=== PATIENT | male | born 1965 | race Caucasian/White ===

== ENCOUNTER 2023-12-22 08:11 | Outpatient (CLI) | payer BC, SELFPAY ==
--- NOTE | ~2023-12-22 | CT_ITS ---
EXAMINATION: CT abdomen pelvis w con DATE: 12/22/2023 08:37 INDICATION: Unspecified abdominal pain TECHNIQUE: Computed tomography (CT) of the abdomen and pelvis was performed with 100 cc Omnipaque 350 intravenous contrast. The dose-length product was 1095.69 mGy-cm. Automated exposure control and ite rative reconstruction technique were employed. COMPARISON: None. FINDINGS: Lung bases unremarkable. Heart size normal. No significant pleural or pericardial effusion. Small fat-containing bilateral inguinal hernias. There is atherosclerosis of the aorta. No lymphaden opathy. No gallstones. Fatty infiltration of the liver. The spleen, pancreas, adrenal glands and kidn eys are unremarkable. Nonobstructive bowel gas pattern. No free air or free fluid. Mild lumbar spondy losis. IMPRESSION: 1. No acute abdominal abnormality. 2: Cholelithiasis. 3: Bilateral fat-containing inguinal hernias. Reviewed, dictated and finalized at location B.
== END 2023-12-22 08:12 ==
LOC: MICIMG 08:13
PROVIDERS: PCP Family Medicine; Visit Provider Family Medicine
DX: K80.20 Calculus of gallbladder without cholecystitis without obstruction (principal); K40.20 Bilateral inguinal hernia, without obstruction or gangrene, not specified as recurrent; G89.29 Other chronic pain
CPT/HCPCS: 74177; Q9967

== ENCOUNTER 2024-04-01 09:46 | Outpatient (CLI) | payer BC, SELFPAY | END 2024-04-01 09:47 | disposition home or self-care (01) | LOC: ANHAUDIO 09:47 | PROVIDERS: PCP Family Medicine; Visit Provider Otolaryngology | DX: H90.72 Mixed conductive and sensorineural hearing loss, unilateral, left ear, with unrestricted hearing on the contralateral side (principal); H93.12 Tinnitus, left ear | CPT/HCPCS: 92557; 92567 ==